=== PATIENT | male | born 1950 | race Caucasian/White ===

== ENCOUNTER 2020-04-13 09:23 | Observation (INO) | payer MEDICARE, OTHER ==
[~2020-04-13] VITALS: Ht 175.3 cm; Wt 90.7 kg
[~2020-04-13 09:23] MED LIST: BREO ELLIPTA 21 EACH INH; COREG12.5 MG PO; SYNTHROID100 MCG PO; ZESTRIL40 MG PO
[2020-04-13 10:08] LABS: HEMOGLOBIN 15.5 gm/dl (14.0-17.5); RED BLOOD COUNT 4.97 M/UL (4.20-5.50); WHITE BLOOD COUNT 8.3 K/UL (4.5-11.0)
[2020-04-13 10:38] LABS: BUN/CREATININE RATIO 18 (0-10)
[2020-04-13] MEDS ORDERED: TRAZODONE HCL100 MG PO (11:57)
[2020-04-13] MEDS ORDERED: AMITRIPTYLINE H25 MG PO (11:57)
[2020-04-13] MEDS ORDERED: LEVEMIR 10100 UNITS/ SC (12:18)
[2020-04-13] MEDS ORDERED: CELEXA20 MG PO (12:18)
[2020-04-13] MEDS ORDERED: PROTONIX40 MG PO (12:18)
[2020-04-13] MEDS ORDERED: LIPITOR10 MG PO (12:18)
[2020-04-13] MEDS ORDERED: NOVOLOG FL100 UNIT/1 SC (12:19)
[2020-04-13] MEDS ORDERED: PEPCID20 MG PO (12:19)
[2020-04-14 03:09] LABS: HEMOGLOBIN 14.4 gm/dl (14.0-17.5); RED BLOOD COUNT 4.7 M/UL (4.20-5.50); WHITE BLOOD COUNT 8.1 K/UL (4.5-11.0)
[2020-04-14] MEDS ORDERED: CARVEDILOL12.5 MG PO (12:17)
[2020-04-14] MEDS ORDERED: ASPIRIN EC81 MG PO (12:17)
[2020-04-14] MEDS ORDERED: ATORVASTATIN CA20 MG PO (12:17)
[2020-04-14] MEDS ORDERED: LISINOPRIL40 MG PO (12:19)
== END 2020-04-14 14:01 | disposition home or self-care (01) ==
LOC: ER1 09:23 → CDU 11:42 → MED SURG 4 16:25
PROVIDERS: Emergency Medicine; Physician Assistant; ADMIT Internal Medicine
DX: G45.9 Transient cerebral ischemic attack, unspecified (principal); I12.9 Hypertensive chronic kidney disease with stage 1 through stage 4 chronic kidney disease, or unspecified chronic kidney disease; N18.30 Chronic kidney disease, stage 3 unspecified; E03.9 Hypothyroidism, unspecified; F17.210 Nicotine dependence, cigarettes, uncomplicated; Z82.49 Family history of ischemic heart disease and other diseases of the circulatory system; Z85.118 Personal history of other malignant neoplasm of bronchus and lung; Z79.4 Long term (current) use of insulin; Z79.899 Other long term (current) drug therapy; Z20.822 Contact with and (suspected) exposure to COVID-19
CPT/HCPCS: ECHO; 36415; 70450; 70551; 71045; 80048; 80053; 80061; 81001; 82550; 82553; 82962; 83036; 83735; 83874; 84484; 85025; 85610; 85730; 93005; 93306; 93880; 96372; 96374; 97110; 97161; 99285; G0378; U0002